=== PATIENT | female | born 1970 | race Caucasian/White ===

== ENCOUNTER → 2017-09-10 | Outpatient (CLI) | payer OTHER ==
--- NOTE | 2017-09-10 11:59 | REP ---
HIDA SCAN WITH GALLBLADDER EJECTION FRACTION: Following the intravenous administration of 6.4 mCi of technetium-99m mebrofenin, multiple images of the right upper quadrant are performed every 5 minutes for a period of 1 hour. The gallbladder is visualized at 10 minutes post injection. There is biliary to bowel transit at about 15 minutes post injection with no scintigraphic evidence of cholecystitis. At the 1 hour suman 8 ounces of Ensure Enlive was ingested and further imaging performed for 1 hour. Gallbladder ejection fraction is calculated to be 79% which is normal. IMPRESSION: Normal gallbladder ejection fraction. Signed by Angelito Elmore MD 09/10/2017 04:43 P
== END ==
LOC: M RAD 07:58
PROVIDERS: ATTEND Family Medicine
DX: K21.9 Gastro-esophageal reflux disease without esophagitis (principal)
CPT/HCPCS: 78227; A9537; J2805

== ENCOUNTER → 2017-10-03 | Outpatient (CLI) | payer OTHER ==
--- NOTE | 2017-10-03 14:22 | REPMRS ---
Patient History The patient states she had a clinical breast exam in No known family history of cancer. Digital Woman Screen Mammo: October 03, 2017 - Exam #: [id number] Bilateral CC and MLO view(s) were taken. Technologist: Annamarie Johnson, Technologist Prior study comparison: August 27, 2016, digital woman screen mammo performed at [facility]. August 10, 2015, left breast digital mammo diagnostic unilateral, performed at [facility]. FINDINGS: There are scattered fibroglandular densities. There has been no change in the appearance of the mammogram from the prior studies. There is a mild amount of residual fibroglandular tissue which is fairly symmetric. There is no interval development of dominant mass, architectural distortion, or clustered microcalcification suggestive of malignancy. ASSESSMENT: BI-RADS/ACR category 1 mammogram. Negative. Recommendation Routine screening mammogram in 1 year (for women over age 40). This mammogram was interpreted with the aid of an FDA-approved computer-aided dectection system. Electronically Signed By: Angelito Elmore MD 10/03/17 [id number]
== END ==
LOC: M WHC 13:39
PROVIDERS: ATTEND Nurse Practitioner
DX: Z12.31 Encounter for screening mammogram for malignant neoplasm of breast (principal)

== ENCOUNTER → 2018-10-06 | Outpatient (CLI) | payer SELFPAY, OTHER | LOC: M WHC 15:39 | DX: Z12.31 Encounter for screening mammogram for malignant neoplasm of breast (principal) | CPT/HCPCS: 77067 ==

== ENCOUNTER → 2021-01-15 | Outpatient (CLI) | payer OTHER ==
--- NOTE | 2021-01-15 16:07 | REPMRS ---
Patient History The patient states she had a clinical breast exam in 12/2020 No known family history of cancer. 3D TOMOSYNTHESIS WAS PERFORMED. [facility] Volpara breast density b. Digital Woman Screen Mammo: January 15, 2021 - Exam #: [id number] Bilateral CC and MLO view(s) were taken. Technologist: Radha Mishra, Technologist Prior study comparison: October 06, 2018, bilateral digital woman screen mammo performed at [facility]. October 03, 2017, digital woman screen mammo performed at [facility]. FINDINGS: There are scattered fibroglandular densities. There has been no change in the appearance of the mammogram from the prior studies. There is a mild amount of residual fibroglandular tissue which is fairly symmetric. There is no interval development of dominant mass, architectural distortion, or clustered microcalcification suggestive of malignancy. Assessment: BI-RADS/ACR category 1 mammogram. Negative Mammogram. Recommendation Routine screening mammogram in 1 year (for women over age 40). This mammogram was interpreted with the aid of an FDA-approved computer-aided dectection system. Electronically Signed By: Angelito Elmore MD 01/15/21 [id number]
== END ==
LOC: M WHC 14:59
PROVIDERS: ATTEND Nurse Practitioner
DX: Z12.31 Encounter for screening mammogram for malignant neoplasm of breast (principal)